=== PATIENT | male | born 1970 | race Hispanic/Latino ===

== ENCOUNTER 2019-10-22 13:44 | Inpatient (IN) | payer OTHER, SELFPAY ==
[~2019-10-22] VITALS: Ht 167.6 cm; Wt 81.2 kg
[2019-10-22 14:25] LABS: BASOPHILS % (AUTO) 0.2 % (0.0-5.0); LYMPHOCYTES % (AUTO) 7.5 % (21.0-51.0); MEAN CORPUSCULAR HEMOGLOBIN 31.7 pg (27.0-33.0); MEAN CORPUSCULAR HGB CONC 34.8 g/dL (32.0-36.0); MEAN CORPUSCULAR VOLUME 91.1 fL (79-99); MONOCYTES % (AUTO) 4.5 % (3.0-13.0); NEUTROPHILS % (AUTO) 86.7 % (40.0-77.0); PLATELET COUNT (AUTO) 274 K/uL (130-400); RED BLOOD CELL COUNT(AUTO) 4.61 MIL/uL (4.50-6.20); RED CELL DISTRIBUTION WIDTH 12.4 % (11.0-15.5); WHITE BLOOD COUNT (AUTO) 20.7 K/uL (4.8-10.8)
[2019-10-22 14:32] LABS: CREATININE 1.2 mg/dL (0.5-1.5); POTASSIUM 3.6 mmol/L (3.5-5.1)
[2019-10-22 14:39] LABS: ALBUMIN 2.7 g/dL (3.5-5.0); BILIRUBIN,TOTAL 0.6 mg/dL (0.2-1.0); TOTAL PROTEIN, SERUM 7.3 g/dL (6.0-8.3)
[2019-10-22] MEDS: CEFTRIAXONE SODIUM 1 GM IVP SCH (16:15)
[2019-10-22] MEDS ORDERED: ERGOCALCIFEROL (VITAMIN D2) 50,000 UNIT CAPSULE PO ONE (16:15)
[2019-10-22] MEDS ORDERED: HYDRALAZINE HCL 20 MG/ML VIAL IV PRN (16:15)
[2019-10-22] MEDS ORDERED: ONDANSETRON HCL 4 MG/2 ML VIAL IV PRN (16:15)
[2019-10-22] MEDS ORDERED: PHARMACY COMMUNICATION MISC SCH (16:15)
[2019-10-22] MEDS ORDERED: LACTULOSE 20 GM/30 ML UDCUP PO PRN (16:15)
[2019-10-22] MEDS ORDERED: DOXYCYCLINE 100MG+NS 250ML IV SCH (16:15)
[2019-10-22] MEDS ORDERED: CEFTRIAXONE SODIUM 1 GM ONE (16:44)
[2019-10-22] MEDS ORDERED: DOXYCYCLINE 100MG+NS 250ML 250 ML IV ONE (16:44)
[2019-10-22] MEDS ORDERED: ERGOCALCIFEROL (VITAMIN D2) 50,000 UNIT CAPSULE PO SCH (17:00)
[2019-10-22] MEDS ORDERED: OLME1TAB82 PO (19:39)
[2019-10-22] MEDS ORDERED: COLC0.6T70 PO (19:39)
[2019-10-22] MEDS ORDERED: ALLO100T PO (19:39)
[2019-10-22 20:50] VITALS: BP 161/85
[2019-10-22] MEDS: METHYLPREDNISOLONE SOD SUCC 40MG/ML 1ML IVP SCH (21:01)
[2019-10-22] MEDS: DOXYCYCLINE 100MG+NS 250ML 250 ML IV SCH (21:01)
[2019-10-22] MEDS: GUAIFENESIN-DM 200/20 MG 10 ML PO PRN (21:01)
[2019-10-22 23:53] VITALS: BP 121/60
[2019-10-23 03:00] VITALS: BP 115/75
[2019-10-23] MEDS: CEFTRIAXONE SODIUM 1 GM IVP SCH ×2 (03:54→16:38)
[2019-10-23 04:29] LABS: BASOPHILS % (AUTO) 0.2 % (0.0-5.0); HEMATOCRIT 43.5 % (42-54); LYMPHOCYTES % (AUTO) 4.6 % (21.0-51.0); MEAN CORPUSCULAR HEMOGLOBIN 31.1 pg (27.0-33.0); MEAN CORPUSCULAR HGB CONC 33.8 g/dL (32.0-36.0); MONOCYTES % (AUTO) 1.2 % (3.0-13.0); PLATELET COUNT (AUTO) 292 K/uL (130-400); RED BLOOD CELL COUNT(AUTO) 4.73 MIL/uL (4.50-6.20); RED CELL DISTRIBUTION WIDTH 12.5 % (11.0-15.5)
[2019-10-23 04:46] LABS: ALBUMIN 2.6 g/dL (3.5-5.0); BILIRUBIN,TOTAL 0.6 mg/dL (0.2-1.0); CREATININE 1.4 mg/dL (0.5-1.5); TOTAL PROTEIN, SERUM 7.8 g/dL (6.0-8.3)
[2019-10-23 05:01] LABS: CRP QUANTITATIVE 267.7 mg/L (0.00-9.0)
[2019-10-23 08:26] VITALS: BP 128/78
[2019-10-23] MEDS: DOXYCYCLINE 100MG+NS 250ML 250 ML IV SCH ×2 (08:35→20:37)
[2019-10-23] MEDS: ZINC SULFATE 220 CAPSULE PO SCH (08:36)
[2019-10-23] MEDS: ASCORBIC ACID 500 MG TAB PO SCH (08:36)
[2019-10-23] MEDS: METHYLPREDNISOLONE SOD SUCC 40MG/ML 1ML IVP SCH ×3 (08:36→20:37)
[2019-10-23] MEDS: LOSARTAN 50 MG TABLET PO SCH (08:36)
[2019-10-23] MEDS: GUAIFENESIN-DM 200/20 MG 10 ML PO PRN ×2 (08:56→21:56)
[2019-10-23] MEDS ORDERED: ENOXAPARIN SODIUM 40 MG/0.4 ML SYRINGE SQ SCH (09:00)
[2019-10-23 12:30] VITALS: BP 114/60
[2019-10-23] MEDS: PHARMACY COMMUNICATION MISC SCH ×2 (14:45→19:43)
--- NOTE | 2019-10-23 15:21 | NUR ---
JUAN PLAN CALLED PATIENT ROOM. CELL [phone] NO ANSWER. REID WILL CONTINUE TO FOLLOW. Addendum: 10/23/19 at 1522 by ZOË WINCHESTER RN CM Amended: Links added.
[2019-10-23 16:53] VITALS: BP 105/63
[2019-10-23 17:01] LABS: INR 1.04 (0.85-1.15); PROTHROMBIN TIME 11.2 SEC (9.6-11.6)
--- NOTE | 2019-10-23 18:07 | NUR ---
1510: Pt consented to COVID-19 Convalescent Plasma. All questions answered and concerns addressed. Obtain new orders for PTT/INR.
[2019-10-23 19:00] VITALS: BP 118/64
[2019-10-23] MEDS ORDERED: SODIUM CHLORIDE 0.9% 250 ML IV ONE (19:54)
[2019-10-23 23:00] VITALS: BP 128/79
[2019-10-23] MEDS: ENOXAPARIN SODIUM 40 MG/0.4 ML SYRINGE SQ SCH (23:31)
[2019-10-24 03:00] VITALS: BP 113/61
[2019-10-24] MEDS: CEFTRIAXONE SODIUM 1 GM IVP SCH ×2 (03:22→16:34)
[2019-10-24 04:48] LABS: BASOPHILS % (AUTO) 0.1 % (0.0-5.0); HEMATOCRIT 38.2 % (42-54); LYMPHOCYTES % (AUTO) 4.6 % (21.0-51.0); MEAN CORPUSCULAR HEMOGLOBIN 31.7 pg (27.0-33.0); MEAN CORPUSCULAR HGB CONC 34.8 g/dL (32.0-36.0); MONOCYTES % (AUTO) 2.5 % (3.0-13.0); NEUTROPHILS % (AUTO) 91.6 % (40.0-77.0); PLATELET COUNT (AUTO) 290 K/uL (130-400); RED CELL DISTRIBUTION WIDTH 12.2 % (11.0-15.5); WHITE BLOOD COUNT (AUTO) 24.6 K/uL (4.8-10.8)
[2019-10-24 05:17] LABS: ALBUMIN 2.4 g/dL (3.5-5.0); BILIRUBIN,TOTAL 0.4 mg/dL (0.2-1.0); CREATININE 1.1 mg/dL (0.5-1.5); POTASSIUM 4.6 mmol/L (3.5-5.1); TOTAL PROTEIN, SERUM 7.2 g/dL (6.0-8.3)
[2019-10-24 08:00] VITALS: BP 111/62
[2019-10-24] MEDS: GUAIFENESIN-DM 200/20 MG 10 ML PO PRN ×3 (08:02→20:08)
[2019-10-24] MEDS: LOSARTAN 50 MG TABLET PO SCH (08:02)
[2019-10-24] MEDS: DOXYCYCLINE 100MG+NS 250ML 250 ML IV SCH ×2 (08:02→20:04)
[2019-10-24] MEDS: ZINC SULFATE 220 CAPSULE PO SCH (08:02)
[2019-10-24] MEDS: ASCORBIC ACID 500 MG TAB PO SCH (08:02)
[2019-10-24] MEDS: METHYLPREDNISOLONE SOD SUCC 40MG/ML 1ML IVP SCH ×3 (08:02→20:04)
[2019-10-24] MEDS: PHARMACY COMMUNICATION MISC SCH ×2 (08:03→20:05)
[2019-10-24] MEDS: ENOXAPARIN SODIUM 40 MG/0.4 ML SYRINGE SQ SCH ×2 (08:03→20:04)
[2019-10-24 12:00] VITALS: BP 107/58
--- NOTE | 2019-10-24 14:21 | NUR ---
cm note no answer to pt's phone, call made to listed on face sheet, states pt is independent with ambulationadls no dme. works fulltime, but switched job and has no insurance temporarily. discussed Community resources and RX assist programs, is working with [employer] for possible bharati assistance. pt . verbalizes understanding.
[2019-10-24 16:00] VITALS: BP 118/70
[2019-10-24] MEDS ORDERED: HYDRALAZINE HCL 20 MG/ML VIAL IV PRN (18:45)
[2019-10-24] MEDS ORDERED: ONDANSETRON HCL 4 MG/2 ML VIAL IVP PRN (18:45)
[2019-10-24] MEDS ORDERED: MORPHINE SULFATE 2 MG/ML 1ML SYG IVP PRN (18:45)
[2019-10-24] MEDS ORDERED: BENZONATATE 100 MG CAPSULE PO PRN (18:45)
[2019-10-24 19:00] VITALS: BP 119/69
[2019-10-24] MEDS ORDERED: FAMOTIDINE 20MG TAB 20 MG TAB PO SCH (21:00)
[2019-10-24 23:00] VITALS: BP 121/71
[2019-10-25 03:00] VITALS: BP 120/74
[2019-10-25] MEDS: CEFTRIAXONE SODIUM 1 GM IVP SCH ×2 (03:41→15:21)
[2019-10-25 04:41] LABS: BASOPHILS % (AUTO) 0.1 % (0.0-5.0); HEMATOCRIT 37.1 % (42-54); LYMPHOCYTES % (AUTO) 4.1 % (21.0-51.0); MEAN CORPUSCULAR HEMOGLOBIN 31.4 pg (27.0-33.0); MEAN CORPUSCULAR HGB CONC 34.2 g/dL (32.0-36.0); MEAN CORPUSCULAR VOLUME 91.6 fL (79-99); MONOCYTES % (AUTO) 3.7 % (3.0-13.0); NEUTROPHILS % (AUTO) 89.7 % (40.0-77.0); PLATELET COUNT (AUTO) 329 K/uL (130-400); RED BLOOD CELL COUNT(AUTO) 4.05 MIL/uL (4.50-6.20); RED CELL DISTRIBUTION WIDTH 12.5 % (11.0-15.5); WHITE BLOOD COUNT (AUTO) 21.2 K/uL (4.8-10.8)
[2019-10-25 04:52] LABS: ALBUMIN 2.2 g/dL (3.5-5.0); BILIRUBIN,TOTAL 0.4 mg/dL (0.2-1.0); CREATININE 1.1 mg/dL (0.5-1.5); POTASSIUM 4.5 mmol/L (3.5-5.1); TOTAL PROTEIN, SERUM 6.7 g/dL (6.0-8.3)
[2019-10-25 08:00] VITALS: BP 118/71
[2019-10-25] MEDS: GUAIFENESIN-DM 200/20 MG 10 ML PO PRN ×2 (08:36→13:51)
[2019-10-25] MEDS: DOXYCYCLINE 100MG+NS 250ML 250 ML IV SCH ×2 (08:36→21:42)
[2019-10-25] MEDS: LOSARTAN 50 MG TABLET PO SCH (08:37)
[2019-10-25] MEDS: METHYLPREDNISOLONE SOD SUCC 40MG/ML 1ML IVP SCH ×3 (08:37→21:42)
[2019-10-25] MEDS: ZINC SULFATE 220 CAPSULE PO SCH (08:37)
[2019-10-25] MEDS: ASCORBIC ACID 500 MG TAB PO SCH (08:37)
[2019-10-25] MEDS: ENOXAPARIN SODIUM 40 MG/0.4 ML SYRINGE SQ SCH ×2 (08:38→21:43)
[2019-10-25] MEDS: PHARMACY COMMUNICATION MISC SCH ×2 (08:40→20:39)
[2019-10-25] MEDS ORDERED: DEXAMETHASONE SOD PHOSPHATE 4 MG/ML 1ML VIAL IVP SCH (09:00)
[2019-10-25] MEDS ORDERED: ENOXAPARIN SODIUM 60 MG/0.6 ML SQ SCH (09:00)
[2019-10-25 12:00] VITALS: BP 111/56
[2019-10-25 16:00] VITALS: BP 110/62
[2019-10-25] MEDS ORDERED: DOCUSATE SODIUM 100 MG CAP PO PRN (19:15)
[2019-10-25] MEDS ORDERED: LACTULOSE 20 GM/30 ML UDCUP PO PRN (19:15)
[2019-10-25 19:35] VITALS: BP 121/68
[2019-10-25 23:17] VITALS: BP 128/75
[2019-10-26] MEDS: CEFTRIAXONE SODIUM 1 GM IVP SCH ×2 (03:23→15:06)
[2019-10-26 04:06] VITALS: BP 123/64
[2019-10-26 06:03] LABS: BASOPHILS % (AUTO) 0.1 % (0.0-5.0); HEMATOCRIT 37.9 % (42-54); LYMPHOCYTES % (AUTO) 5.3 % (21.0-51.0); MEAN CORPUSCULAR HEMOGLOBIN 31.5 pg (27.0-33.0); MEAN CORPUSCULAR HGB CONC 34.3 g/dL (32.0-36.0); MEAN CORPUSCULAR VOLUME 91.8 fL (79-99); MONOCYTES % (AUTO) 3.6 % (3.0-13.0); NEUTROPHILS % (AUTO) 90.4 % (40.0-77.0); PLATELET COUNT (AUTO) 358 K/uL (130-400); RED BLOOD CELL COUNT(AUTO) 4.13 MIL/uL (4.50-6.20); RED CELL DISTRIBUTION WIDTH 12.4 % (11.0-15.5)
[2019-10-26 06:26] LABS: ALBUMIN 2.2 g/dL (3.5-5.0); BILIRUBIN,TOTAL 0.4 mg/dL (0.2-1.0); POTASSIUM 4.8 mmol/L (3.5-5.1); TOTAL PROTEIN, SERUM 6.4 g/dL (6.0-8.3)
[2019-10-26 07:00] VITALS: BP 133/81
[2019-10-26] MEDS: DOXYCYCLINE 100MG+NS 250ML 250 ML IV SCH ×2 (08:21→20:12)
[2019-10-26] MEDS: METHYLPREDNISOLONE SOD SUCC 40MG/ML 1ML IVP SCH ×2 (08:22→13:53)
[2019-10-26] MEDS: ENOXAPARIN SODIUM 40 MG/0.4 ML SYRINGE SQ SCH ×2 (08:23→20:12)
[2019-10-26] MEDS: ASCORBIC ACID 500 MG TAB PO SCH (08:23)
[2019-10-26] MEDS: ZINC SULFATE 220 CAPSULE PO SCH (08:23)
[2019-10-26] MEDS: LOSARTAN 50 MG TABLET PO SCH (08:23)
[2019-10-26] MEDS: PHARMACY COMMUNICATION MISC SCH ×2 (08:24→20:12)
[2019-10-26 11:00] VITALS: BP 146/77
[2019-10-26 15:00] VITALS: BP 108/59
[2019-10-26] MEDS: GUAIFENESIN-DM 200/20 MG 10 ML PO PRN (20:11)
[2019-10-26 21:16] VITALS: BP 132/69
[2019-10-27 00:43] VITALS: BP 134/76
[2019-10-27] MEDS: CEFTRIAXONE SODIUM 1 GM IVP SCH (03:38)
[2019-10-27 04:21] VITALS: BP 137/77
[2019-10-27 04:23] LABS: BASOPHILS % (AUTO) 0.1 % (0.0-5.0); HEMATOCRIT 36.9 % (42-54); LYMPHOCYTES % (AUTO) 8.4 % (21.0-51.0); MEAN CORPUSCULAR HEMOGLOBIN 31.5 pg (27.0-33.0); MEAN CORPUSCULAR HGB CONC 34.4 g/dL (32.0-36.0); MEAN CORPUSCULAR VOLUME 91.6 fL (79-99); NEUTROPHILS % (AUTO) 83.6 % (40.0-77.0); PLATELET COUNT (AUTO) 369 K/uL (130-400); RED BLOOD CELL COUNT(AUTO) 4.03 MIL/uL (4.50-6.20); RED CELL DISTRIBUTION WIDTH 12.4 % (11.0-15.5); WHITE BLOOD COUNT (AUTO) 12.8 K/uL (4.8-10.8)
[2019-10-27 05:01] LABS: ALANINE AMINOTRANSFERASE 82 U/L (12-78); ALBUMIN 2.3 g/dL (3.5-5.0); ASPARTATE AMINOTRANSFERASE 26 U/L (10-37); BILIRUBIN,TOTAL 0.5 mg/dL (0.2-1.0); CARBON DIOXIDE 27 mmol/L (21-32); CHLORIDE 105 mmol/L (101-111); CREATININE 1.1 mg/dL (0.5-1.5); GLOMERULAR FILTR. RATE CALC 75 mL/min (>60); GLUCOSE,RANDOM 92 mg/dL (70-105); LACTATE DEHYDROGENASE 152 U/L (81-234); POTASSIUM 4.6 mmol/L (3.5-5.1); SODIUM SERUM 137 mmol/L (136-145); UREA NITROGEN, BLOOD 23 mg/dL (7-18)
[2019-10-27 07:59] VITALS: BP 135/74
[2019-10-27] MEDS: PHARMACY COMMUNICATION MISC SCH (09:00)
[2019-10-27] MEDS ORDERED: METHYLPREDNISOLONE SOD SUCC 40MG/ML 1ML IVP SCH (09:00)
[2019-10-27] MEDS: ZINC SULFATE 220 CAPSULE PO SCH (09:22)
[2019-10-27] MEDS: DOXYCYCLINE 100MG+NS 250ML 250 ML IV SCH (09:22)
[2019-10-27] MEDS: ASCORBIC ACID 500 MG TAB PO SCH (09:22)
[2019-10-27] MEDS: LOSARTAN 50 MG TABLET PO SCH (09:23)
[2019-10-27] MEDS: ENOXAPARIN SODIUM 40 MG/0.4 ML SYRINGE SQ SCH (09:25)
--- NOTE | 2019-10-27 10:53 | NUR ---
Rounding Dr Tello by bedside. Pt verbalizes feeling much better. NAD. VS stable. Pt informed of plan for discharge by MD. Pt agreeable at this time.
[2019-10-27] MEDS ORDERED: ZINC220C6 PO (11:31)
[2019-10-27] MEDS ORDERED: DEXA6TAB PO (11:31)
[2019-10-27] MEDS ORDERED: APIX2.5T PO (11:31)
[2019-10-27] MEDS ORDERED: ASCO500T20 PO (11:31)
[2019-10-27 12:55] VITALS: BP 109/60
--- NOTE | 2019-10-27 14:19 | NUR ---
Discharge Pt clear for discharge. Discharge teaching rendered. Verbalizes understand of follow up care and med teaching. VS stable AAOx4. Airway patent breathing even and unlabored on room air. No complaints at this time. NAD. IV removed. Bleeding controlled. Dressing applied.
== END 2019-10-27 14:30 | disposition home or self-care (01) | DRG 177 ==
LOC: EDH 13:44 → EDHIP 13:45 → 2AH 19:12
PROVIDERS: ADMIT Hospitalist; ATTEND Hospitalist
PROC: XW13325 Transfusion of Convalescent Plasma (Nonautologous) into Peripheral Vein, Percutaneous Approach, New Technology Group 5 (ICD-10-PCS; principal; 2019-10-23)
DX: U07.1 COVID-19 (principal); J96.01 Acute respiratory failure with hypoxia; J12.89 Other viral pneumonia; E87.1 Hypo-osmolality and hyponatremia; M10.9 Gout, unspecified; F41.9 Anxiety disorder, unspecified; Z87.891 Personal history of nicotine dependence; I10 Essential (primary) hypertension; Z79.01 Long term (current) use of anticoagulants
CPT/HCPCS: 36415; 36430; 71045; 80053; 82550; 82728; 83615; 84145; 84484; 85025; 85378; 85610; 86140; 86900; 86901; 86927; 87426; 93005; G0378; J0696; J1650; J2920; J3490; J7050

== ENCOUNTER 2024-07-29 12:14 | Emergency (ER) | payer BC ==
[~2024-07-29] VITALS: Ht 264.2 cm; Wt 88.5 kg
[~2024-07-29 12:14] MED LIST: ALLO100T PO; ASPI-1005 PO; CELE-146 PO; COLC0.6T73 PO
--- NOTE | 2024-07-29 12:26 | ERN ---
ED Note History of Present Illness Stated Complaint: SENT BY ESTHER Chief Complaint: Abnormal Labs Time Seen by MD: 12:16 Dictation: PATIENT IS A 54-YEAR-OLD MALE COMING IN FROM A LOCAL PRIMARY CARE DOCTOR'S OFFICE WITH LABS WERE DRAWN YESTERDAY AND, HIS HIGH SENSITIVITY TROPONIN WAS 88. THE REMAINDER OF THE LABS WERE NORMAL HE SAID HE HAS NOT HAD ANY CHEST PAIN NO SHORTNESS BREATH NO NAUSEA VOMITING NO EPIGASTRIC PAIN. 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 STATES HE WAS SEEN LAST WEEK AND HAD ELEVATED TROPONIN TWO HOWEVER Allergies: Coded Allergies: No Known Drug Allergies (Unverified Allergy, 09/17/11) Home Meds Active Scripts Magnesium Oxide/Mag Aa Chelate (Magnesium 300 mg Capsule) 300 Mg Capsule, 300 MG PO DAILY for 10 Days, #10 CAP 0 Refills Prov:VICKI BYRD BOARDER HAND 07/29/24 Aspirin (ASPIRIN 81MG CHEW TAB) 81 Mg Tab.chew, 81 MG PO Q24H for 30 Days, #30 TAB.CHEW Prov:JOSLYN ANTON NP 07/26/24 Reported Medications Celecoxib (Celecoxib) 100 Mg Capsule, 1 CAP PO BID for 10 Days, #20 CAP 0 Refills 07/23/24 Colchicine (Colchicine) 0.6 Mg Tablet, 1 TAB PO QDP 10/22/19 Allopurinol (Allopurinol) 100 Mg Tablet, 1 TAB PO QDP 10/22/19 Discontinued Reported Medications Olmesartan/Hydrochlorothiazide (Olmesartan-Hctz 20-12.5 mg Tab) 1 Each Tablet, 1 TAB PO QDP 10/22/19 Discontinued Scripts Apixaban (Eliquis) 2.5 Mg Tablet, 2.5 MG PO BID for 21 Days, #42 TAB Prov:TRIPP BHATTI Jr., MD 10/27/19 Dexamethasone (Dexamethasone) 6 Mg Tablet, 6 MG PO DAILY for 10 Days, #10 TAB Prov:TRIPP BHATTI Jr., MD 10/27/19 Zinc Sulfate (Zinc Sulfate 220 Cap) 220 Mg Capsule, 220 MG PO DAILY for 30 Days, #30 CAP Prov:TRIPP BHATTI Jr., MD 10/27/19 Ascorbic Acid (Vitamin C) 500 Mg Tablet, 500 MG PO DAILY for 30 Days, #30 TAB Prov:TRIPP BHATTI Jr., MD 10/27/19 Past Medical History Past Medical History: High Cholesterol, Heart Disease, Hypertension, Other Additional Past Medical Hx: GOUT Surgical History: Other Surgical History Other: BACK RN Note Reviewed/Agreed w/PFSH: Yes Review of System Dictation CONSTITUTIONAL: NEGATIVE EXCEPT FOR HPI HEAD/FACE: NEGATIVE EXCEPT FOR HPI EENT: NEGATIVE EXCEPT FOR HPI RESPIRATORY: NEGATIVE EXCEPT FOR HPI GASTROINTESTINAL/ABDOMINAL: NEGATIVE EXCEPT FOR HPI GENITOURINARY: NEGATIVE EXCEPT FOR HPI MUSCULOSKELETAL: NEGATIVE EXCEPT FOR HPI INTEGUMENTARY: NEGATIVE EXCEPT FOR HPI NEUROLOGICAL/PSYCH: NEGATIVE EXCEPT FOR HPI HEMATOLOGIC/LYMPHATIC: NEGATIVE EXCEPT FOR HPI ALL SYSTEMS NEGATIVE, EXCEPT NOTED ABOVE. 13 POINT REVIEW OF SYSTEMS ASSESSED AND ALL NEGATIVE EXCEPT FOR ABOVE. Initial Vital Sign VS Vital Signs Date Time Temp Pulse Resp B/P (MAP) Pulse Ox O2 Delivery O2 Flow Rate FiO2 07/29/24 12:19 97.9 58 16 149/88 98 Room Air 0 07/29/24 14:06 21 Physical Exam Dictation VITAL SIGNS REVIEWED GENERAL APPEARANCE: ALERT, ORIENTED X 3, NO ACUTE DISTRESS, WELL DEVELOPED, NOUR ISHED. 0/10, NO COMPLAINTS OF VOICE HEAD AND FACE: NON-TRAUMATIC. EYES: PERRL, PINK CONJUNCTIVAS, EYELID NO TRAUMA, ANTERIOR CHAMBER WITH ARCUS SENILIS. EARS: PINNAS INTACT AND NO SIGNS OF TRAUMA OR ERYTHEMA EAR CANALS CLEAR AND NO DISCHARGE TM NO ERYTHEMA NOSE: NO DISCHARGE, NO BLEEDING. OROPHARYNX: MOUTH NORMAL, TONGUE PINK, PHARYNX CLEAR,NO ERYTHEMA, TONSILS NO EXUDATES, NO ABSCESSES NOTED, MUCOUS MEMBRANE MOIST NECK: SUPPLE, NON-TENDER, NO THYROMEGALY, NO MASSES, NO JVD, NO BRUITS BREAST:DEFERRED CHEST:NO TENDERNESS, NO CREPITUS, NO PARADOXICAL MOVEMENT, NO RETRACTIONS LUNGS:CLEAR, WELL-VENTILATED, SYMMETRIC, NO RALES, NO WHEEZING, NO RHONCHI, NO STRIDOR, GOOD BREATH SOUNDS BILATERALLY HEART: REGULAR RATE, REGULAR RHYTHM, NO MURMUR, NO GALLOPS VASCULAR: NO PERIPHERAL EDEMA, ABDOMEN: SOFT, POSITIVE BOWEL SOUNDS, NONDISTENDED, NO GUARDING, NONTENDER, NO REBOUND, NO MASSES NO HEPATOMEGALY, NO SPLENOMEGALY, NO ALVES'S SIGN, NO HERNIAS. RECTAL: DEFERRED GENITAL: DEFERRED NEUROLOGICAL: NORMAL SPEECH, MOTOR FUNCTION INTACT, SENSORY FUNCTION INTACT MUSCULOSKELETAL: NECK NONTENDER, FULL RANGE OF MOTION, BACK NONTENDER, FULL RANGE OF MOTION, EXTREMITIES: NONTENDER, FULL RANGE OF MOTION SKIN: COLOR PINK, DRY, NO TURGOR, NO RASH, NO LACERATIONS, NO ABRASIONS, NO CONTUSIONS. LYMPHATIC: DEFERRED Results (Laboratory/Radiology) Laboratory/Radiology Laboratory Tests Test 07/29/24 12:41 White Blood Count 7.7 K/uL (4.8-10.8) Red Blood Count 4.48 MIL/uL (4.50-6.20) L Hemoglobin 14.1 g/dL (14.0-18.0) Hematocrit 40.0 % (42-54) L Mean Corpuscular Volume 89.3 fL (79-99) Mean Corpuscular Hemoglobin 31.5 pg (27.0-33.0) Mean Corpuscular Hemoglobin Concent 35.3 g/dL (32.0-36.0) Red Cell Distribution Width 13.1 % (11.0-15.5) Platelet Count 217 K/uL (130-400) Mean Platelet Volume 10.2 fL (7.5-10.5) Immature Granulocyte % (Auto) 0.4 % (0-1) Neutrophils (%) (Auto) 47.0 % (40.0-77.0) Lymphocytes (%) (Auto) 37.7 % (21.0-51.0) Monocytes (%) (Auto) 13.0 % (3.0-13.0) Eosinophils (%) (Auto) 1.6 % (0.0-8.0) Basophils (%) (Auto) 0.3 % (0.0-5.0) Neutrophils # (Auto) 3.6 K/uL (1.8-7.7) Lymphocytes # (Auto) 2.9 K/uL (1.0-4.8) Monocytes # (Auto) 1.0 K/uL (0.1-1.0) Eosinophils # (Auto) 0.12 K/uL (0.00-0.70) Basophils # (Auto) 0.02 K/uL (0.00-0.20) Absolute Immature Granulocyte (auto 0.03 K/uL (0-1) Nucleated Red Blood Cells 0.0 % (0.0-0.19) Sodium Level 140 mmol/L (136-145) Potassium Level 3.6 mmol/L (3.5-5.1) Chloride Level 104 mmol/L (101-111) Carbon Dioxide Level 29 mmol/L (21-32) Blood Urea Nitrogen 14 mg/dL (7-18) Creatinine 0.9 mg/dL (0.5-1.3) Glomerular Filtration Rate Calc 100 mL/min (>90) Random Glucose 110 mg/dL (70-105) H Total Calcium 8.8 mg/dL (8.5-10.1) Magnesium Level 1.70 mg/dL (1.80-2.40) L Troponin I High Sensitivity 128 ng/L (4-75) *H B-Type Natriuretic Peptide 88 pg/mL (0-100) Labs Reviewed?: Yes EKG Comment: EKG SINUS BRADYCARDIA/HEART RATE 54/AXIS NORMAL/ ED Course ED Course Orders Procedure Category Date Status Time Cbc With Differential LAB 07/29/24 Complete 12:24 B-Type Natriuretic LAB 07/29/24 Complete Peptide 12:24 Chest 1vw RAD 07/29/24 Resulted 12:24 12 Lead Ekg Tracing- EKG 07/29/24 Complete Technical 12:24 Magnesium LAB 07/29/24 Complete 12:24 Troponin I High LAB 07/29/24 Complete Sensitivity 12:24 Basic Metabolic Panel LAB 07/29/24 Complete 12:24 Vital Signs Date Time Temp Pulse Resp B/P (MAP) Pulse Ox O2 Delivery O2 Flow Rate FiO2 07/29/24 14:06 97.9 62 18 158/76 97 Room Air* 0 21 07/29/24 12:19 97.9 58 16 149/88 98 Room Air 0 1320/RHYTHM NO FROM DR. CAIT STERLING FROM PATIENT'S ADMISSION ON 07/24. EKGS WERE UNREMARKABLE WITH THE ELEVATED TROPONINS APPROXIMATE 1-1/2 TIMES NORMAL. LEXISCAN WAS PERFORMED AND IT WAS NEGATIVE. SHE SIGNED OFF ON THE CASE ON 07/25 AND RECOMMENDED HE FOLLOW UP WITH DR. FRIEDMAN IN TWO WEEKS. SHE SAID THE ELEVATED TROPONIN WAS NOT ACUTE CORONARY SYNDROME 1402/PATIENT DISCHARGED HOME WITHOUT ANY COMPLAINTS OF CHEST PAIN ABDOMINAL PAIN NAUSEA VOMITING SHORTNESS A BREATH ARM PAIN BACK PAIN OR JAW PAIN. HE IS AWARE THAT HE DOES HAVE AN ELEVATED TROPONIN HOWEVER HE HAD ALREADY BEEN CLEARED BY DR. OSWALDO STERLING AND WAS REFERRED TO DR. FRIEDMAN TWO WEEKS FROM THE DISCHARGED ON 07/25/2024. PATIENT WILL BE DISCHARGED HOME TO FOLLOW UP WITH DR. MORILLO AM YOUR FOR ELEVATED TROPONIN HEART Score Response (Comments) Value History: Low suspicion (0) 0 Age: 45-65yrs (+1) 1 Risk Factors: 1-2 risk factors (+1) 1 Initial Troponin: 1-3x Normal Limit (+1) 1 Total 3 Medical Decision Making MDM MEDICAL DISCHARGE MAKING BASED ON CARDIAC WORKUP AND CHECKING MAGNESIUM. PATIENT DOES HAVE AN ELEVATED TROPONIN MAGNESIUM 1.7. OTHERWISE UNREMARKABLE WORKUP PATIENT HAD ALREADY BEEN MEDICALLY CLEARED FROM A CARDIOLOGY STANDPOINT BY DR. CAIT STERLING ON 07/25/2024. PATIENT WAS REFERRED TO DR. FRIEDMAN TO FOLLOW UP WITH IN THE NEXT 7-10 DAYS DX & DISP Disposition: Discharge Departure Impression: Primary Impression: Elevated troponin level not due to acute coronary syndrome Additional Impressions: Hypomagnesemia, Obesity Condition: Stable Scripts Magnesium Oxide/Mag Aa Chelate (Magnesium 300 mg Capsule) 300 Mg Capsule 300 MG PO DAILY for 10 Days, #10 CAP 0 Refills Prov: VICKI BYRD NP 07/29/24 Additional Instructions: FOLLOW-UP WITH PRIMARY CARE PROVIDER IN 1 TO 2 DAYS. TAKE MEDICATIONS DIRECTED HERE IN THE EMERGENCY ROOM. OKAY TO CONTINUE HOME MEDICATIONS UNLESS OTHERWISE DISCUSSED DURING YOUR VISIT IN THE EMERGENCY ROOM TODAY. RETURN TO YOUR NEAREST EMERGENCY ROOM IF SYMPTOMS WORSEN OR IF THERE IS NO IMPROVEMENT. CALL 911 IF YOU NEED IMMEDIATE ASSISTANCE. TAKE TYLENOL OR MOTRIN [id number] NEEDED AND IF NO CONTRAINDICATIONS ARE PRESENT. INCREASE ORAL HYDRATION. A WOUND CULTURE OR URINE CULTURE WAS ORDERED HERE IN THE EMERGENCY ROOM DEPARTMENT PLEASE FOLLOW-UP WITH PRIMARY CARE PROVIDER AND ADVISE THEM TO GET REPEAT PORTS FROM OUR FACILITY. IF YOU HAD ANY VENKATA WRAP/SPLINTS THAT WERE APPLIED HERE, PLEASE DO NOT REMOVE THEM UNTIL YOU SEE YOUR PRIMARY CARE OR SPECIALTY. FOLLOW UP WITH DR. SONJA ELLISON IN THE NEXT 7-10 DAYS. CALL HER OFFICE TOMORROW FOR AN APPOINTMENT. CONTINUE ALL YOUR MEDICATIONS FROM YOUR PRIMARY CARE DOCTOR. Referrals: FADI SEE (PCP) SEEMA FRIEDMAN DO Time of Disposition: 14:05 I have reviewed the case, and I agree with, Diagnosis and Plan VICKI BYRD NP Jul 29, 2024 12:26 KATELYN LANGE DO Jul 29, 2024 14:20
[2024-07-29 12:55] LABS: BASOPHILS # (AUTO) 0.02 K/uL (0.00-0.20); BASOPHILS % (AUTO) 0.3 % (0.0-5.0); EOSINOPHILS # (AUTO) 0.12 K/uL (0.00-0.70); EOSINOPHILS % (AUTO) 1.6 % (0.0-8.0); IMMATURE GRANULOCYTE ABSOLUTE 0.03 K/uL (0-1); LYMPHOCYTES # (AUTO) 2.9 K/uL (1.0-4.8); LYMPHOCYTES % (AUTO) 37.7 % (21.0-51.0); MEAN CORPUSCULAR HEMOGLOBIN 31.5 pg (27.0-33.0); MEAN CORPUSCULAR HGB CONC 35.3 g/dL (32.0-36.0); MEAN CORPUSCULAR VOLUME 89.3 fL (79-99); NEUTROPHILS # (AUTO) 3.6 K/uL (1.8-7.7); PLATELET COUNT (AUTO) 217 K/uL (130-400); RED BLOOD CELL COUNT(AUTO) 4.48 MIL/uL (4.50-6.20); RED CELL DISTRIBUTION WIDTH 13.1 % (11.0-15.5); WHITE BLOOD COUNT (AUTO) 7.7 K/uL (4.8-10.8)
[2024-07-29 13:01] LABS: CREATININE 0.9 mg/dL (0.5-1.3); MAGNESIUM 1.7 mg/dL (1.80-2.40); POTASSIUM 3.6 mmol/L (3.5-5.1)
--- NOTE | 2024-07-29 13:20 | EKG ---
[facility] Test Date: 2024-07-29 Test Time: 12:38:20 Pat Name: JOSE ANTONIO CESPEDES Department: ED Room: Gender: M Alarm Operator: [id number] : [id number] Requested By: VICKI BYRD Order Number: [id number] Reading MD: Alondra Wilcox Measurements Intervals [place] Rate: 54 P: 43 NV: 151 QRS: -9 QRSD: 98 T: -44 QT: 432 QTc: 411 Interpretive Statements Sinus rhythm Posterior infarct, old Compared to ECG 07/23/2024 08:45:11 Ventricular premature complex(es) no longer present T-wave abnormality no longer present Myocardial infarct finding still present Electronically Signed On 07-30-2024 15:06:13 CDT by Alondra Wilcox Please click the below link to view image of tracing.
[2024-07-29 13:44] LABS: B-TYPE NATRIURETIC PEPTIDE 88 pg/mL (0-100)
--- NOTE | 2024-07-29 14:03 | HMCIMG ---
CHEST 1VW HISTORY: Chest pain COMPARISON: 07/23/2024 FINDINGS: A frontal projection of the chest was obtained. No acute pulmonary infiltrates is seen. The heart is normal in size. Prominent interstitial markings are seen. No evidence of aortic calcification is seen. IMPRESSION: 1. No acute pulmonary infiltrate is seen.
[2024-07-29] MEDS ORDERED: MAGN300C PO (14:06)
[2024-07-29 14:40] VITALS: BP 149/80; PULSE 54; RESP 18; TEMP 98; O2SAT 97
== END 2024-07-29 14:41 | disposition home or self-care (01) ==
LOC: EDH 12:14
DX: R79.89 Other specified abnormal findings of blood chemistry (principal); E83.42 Hypomagnesemia; E66.9 Obesity, unspecified; E78.00 Pure hypercholesterolemia, unspecified; I11.9 Hypertensive heart disease without heart failure; Z79.01 Long term (current) use of anticoagulants; Z79.52 Long term (current) use of systemic steroids; Z79.82 Long term (current) use of aspirin
CPT/HCPCS: 36415; 71045; 80048; 83735; 83880; 84484; 85025; 93005; 99284